=== PATIENT | male | born 1975 | race Asian ===

== ENCOUNTER 2020-07-22 08:58 | Emergency (ER) | payer MEDICAID ==
[~2020-07-22] VITALS: Ht 170.2 cm; Wt 68.2 kg
[~2020-07-22 08:58] MED LIST: ALBU6.7H9 INH
[2020-07-22] MEDS ORDERED: LISI20TA28 PO (09:57)
[2020-07-22 10:28] VITALS: BP 150/112
== END 2020-07-22 10:31 | disposition home or self-care (01) ==
LOC: ER 08:59
DX: I10 Essential (primary) hypertension (principal); J45.909 Unspecified asthma, uncomplicated; Z79.899 Other long term (current) drug therapy
CPT/HCPCS: 99283

== ENCOUNTER 2020-10-05 17:32 | Emergency (ER) | payer MEDICAID ==
[~2020-10-05] VITALS: Ht 167.6 cm; Wt 68.0 kg
[2020-10-06 00:45] LABS: BASOPHILS # (AUTO) 0.1 X10'3 (0-0.2); BASOPHILS % (AUTO) 0.6 % (0-1); EOSINOPHILS % (AUTO) 0.3 % (0-6); HEMATOCRIT 40.1 % (42.0-52.0); HEMOGLOBIN 13.9 g/dl (14.0-17.9); LYMPHOCYTES # (AUTO) 1.1 X10'3 (1.1-4.8); LYMPHOCYTES % (AUTO) 12.5 % (21-51); MEAN CORPUSCULAR HEMOGLOBIN 29.4 PG (27.0-31.0); MEAN CORPUSCULAR HGB CONC 34.6 g/dL (33.0-36.5); MEAN CORPUSCULAR VOLUME 84.8 FL (78-98); MEAN PLATELET VOLUME 6.9 FL (7.4-10.4); MONOCYTES # (AUTO) 0.6 X10'3 (0-0.9); MONOCYTES % (AUTO) 6.8 % (2-12); NEUTROPHILS # (AUTO) 7.3 X10'3 (1.8-7.7); NEUTROPHILS % (AUTO) 79.8 % (42-75); PLATELET COUNT 374 X10'3 (140-440); RED BLOOD COUNT 4.72 X10'6 (4.70-6.10); RED CELL DISTRIBUTION WIDTH 14.6 % (11.5-14.5); WHITE BLOOD COUNT 9.2 X10'3 (4.5-11.0)
[2020-10-06 00:58] LABS: ALANINE AMINOTRANSFERASE 63 U/L (12-78); ALBUMIN 3.6 G/DL (3.4-5.0); ALKALINE PHOSPHATASE 72 IU/L (46-116); ANION GAP 10 (8-16); ASPARTATE AMINO TRANSFERASE 53 U/L (10-37); BILIRUBIN,TOTAL 0.4 MG/DL (0.1-1.0); BLOOD UREA NITROGEN 11 MG/DL (7-18); BUN/CREATININE RATIO 13.1 (5.4-32.0); CALCIUM 8.6 MG/DL (8.5-10.1); CHLORIDE 103 MMOL/L (99-107); CREATININE 0.84 MG/DL (0.60-1.10); GLUCOSE 105 MG/DL (70-104); POTASSIUM 3.8 MMOL/L (3.5-5.1); SODIUM 139 MMOL/L (135-145); TOTAL CARBON DIOXIDE 25.9 MMOL/L (24-32); TOTAL PROTEIN 7.2 G/DL (6.4-8.2); eGFR > 90 ML/MIN
[2020-10-06 01:50] LABS: CLARITY,URINE CLEAR (Clear); COLOR,URINE YELLOW (Yellow); GLUCOSE, URINE NEGATIVE (Neg); KETONES,URINE NEGATIVE (Neg); LEUKOCYTE ESTERASE ,URINE NEGATIVE (Neg); NITRITES, URINE NEGATIVE (Neg); OCCULT BLOOD,URINE NEGATIVE (Neg); PH,URINE 7.5 (4.8-8.0); PROTEIN,URINE NEGATIVE (Neg); UROBILINOGEN,URINE 0.2 E.U/dL (0.2-1.0)
[2020-10-06 01:59] LABS: UA COLLECTION TYPE CLN CATCH MIDSTREAM
[2020-10-06 02:30] VITALS: BP 143/98
== END 2020-10-06 02:32 | disposition home or self-care (01) ==
LOC: ER 17:32
DX: I10 Essential (primary) hypertension (principal); H53.8 Other visual disturbances; R05 Cough; J45.909 Unspecified asthma, uncomplicated; Z79.899 Other long term (current) drug therapy
CPT/HCPCS: 36415; 80053; 81003; 83880; 85025; 93005; 99284

== ENCOUNTER 2021-07-31 11:00 | Emergency (ER) | payer MEDICAID ==
[~2021-07-31] VITALS: Ht 167.6 cm; Wt 68.2 kg
--- NOTE | 2021-07-31 13:05 | NUR ---
RELIEVING RN FOR BREAK, PT IS RESTING QUIETLY ON GURNEY, RESP EVEN AND UNLABORED, SKIN P/W/D, SAID TIGHT FEELING IN THROAT AND ITCHINESS ARE RESOLVING, TALKING FULL SENTENCES,
[2021-07-31 13:10] VITALS: BP 133/105
[2021-07-31] MEDS ORDERED: diphenhydrAMINE 25mg capsule PO ONE (13:30)
[2021-07-31] MEDS ORDERED: triamcinolone acetonide 40mg/ml inj IM ONE (13:30)
[2021-07-31] MEDS ORDERED: EPIN0.3P3 IM (13:32)
== END 2021-07-31 13:59 | disposition home or self-care (01) ==
LOC: ER 11:00
DX: T78.1XXA Other adverse food reactions, not elsewhere classified, initial encounter (principal); R22.0 Localized swelling, mass and lump, head; R06.02 Shortness of breath; X58.XXXA Exposure to other specified factors, initial encounter; Y93.89 Activity, other specified; Y92.89 Other specified places as the place of occurrence of the external cause; Y99.8 Other external cause status
CPT/HCPCS: 96372; 99283; J3301; Q0163

== ENCOUNTER 2021-10-26 13:39 | Emergency (ER) | payer MEDICAID ==
[~2021-10-26] VITALS: Ht 167.6 cm; Wt 65.9 kg
[~2021-10-26 13:39] MED LIST changes: +EPIN0.3P3 IM
[2021-10-26 13:58] VITALS: BP 171/123
== END 2021-10-26 14:40 ==
LOC: ER 13:40
DX: I10 Essential (primary) hypertension; J45.909 Unspecified asthma, uncomplicated; V89.2XXA Person injured in unspecified motor-vehicle accident, traffic, initial encounter; Y93.89 Activity, other specified; Y92.89 Other specified places as the place of occurrence of the external cause; Y99.8 Other external cause status
CPT/HCPCS: 99283

== ENCOUNTER 2023-06-10 20:52 | Emergency (ER) | payer MEDICAID ==
[~2023-06-10] VITALS: Ht 167.6 cm; Wt 78.8 kg
[~2023-06-10 20:52] MED LIST changes: +ALBU6.7H14 INH; -ALBU6.7H9 INH
[2023-06-10] MEDS: cloNIDine 0.1 mg tablet PO ONE (21:39)
[2023-06-10 22:17] LABS: BASOPHILS % (AUTO) 0.5 % (0-1); EOSINOPHILS % (AUTO) 0.5 % (0-6); HEMATOCRIT 44.2 % (42.0-52.0); HEMOGLOBIN 14.6 g/dl (14.0-17.9); MEAN CORPUSCULAR HEMOGLOBIN 28.5 PG (27.0-31.0); MEAN CORPUSCULAR HGB CONC 33.1 g/dL (33.0-36.5); MEAN PLATELET VOLUME 7.2 FL (7.4-10.4); MONOCYTES # (AUTO) 0.9 X10'3 (0-0.9); PLATELET COUNT 358 X10'3 (140-440); RED BLOOD COUNT 5.14 X10'6 (4.70-6.10); RED CELL DISTRIBUTION WIDTH 14.4 % (11.5-14.5)
[2023-06-10] MEDS ORDERED: LISI10TA27 PO (22:20)
[2023-06-10 22:26] LABS: ALANINE AMINOTRANSFERASE 58 U/L (12-78); ALBUMIN/GLOBULIN RATIO 1.2 (1.1-1.5); ALKALINE PHOSPHATASE 81 IU/L (46-116); ANION GAP 10 (8-16); ASPARTATE AMINO TRANSFERASE 45 U/L (10-37); BILIRUBIN,TOTAL 0.6 MG/DL (0.1-1.0); BLOOD UREA NITROGEN 15 MG/DL (7-18); BUN/CREATININE RATIO 15.8 (10.0-20.0); CALCIUM 8.5 MG/DL (8.5-10.1); CHLORIDE 101 MMOL/L (99-107); CREATININE 0.95 MG/DL (0.60-1.10); GLUCOSE 92 MG/DL (70-104); POTASSIUM 3.6 MMOL/L (3.5-5.1); SODIUM 138 MMOL/L (135-145); TOTAL CARBON DIOXIDE 27.2 MMOL/L (24-32); TOTAL PROTEIN 7.4 G/DL (6.4-8.2); eCRCL 88 ML/MIN; eGFR 85 ML/MIN
[2023-06-10 22:33] LABS: PRO BRAIN NATRIURETIC PEPTIDE 201 PG/ML (0-125)
[2023-06-10 22:41] LABS: APTT 40 SECONDS (22-32); PROTHROMBIN TIME 11.2 SECONDS (9.0-12.0)
[2023-06-10 22:47] VITALS: BP 141/95; PULSE 89; RESP 18; TEMP 97.9; O2SAT 97
== END 2023-06-10 22:52 | disposition home or self-care (01) ==
LOC: ER 20:53
DX: I10 Essential (primary) hypertension (principal); J45.909 Unspecified asthma, uncomplicated; R79.1 Abnormal coagulation profile; Z79.899 Other long term (current) drug therapy
CPT/HCPCS: 36415; 71045; 80053; 83735; 83880; 84484; 85025; 85610; 85730; 93005; 99285

== ENCOUNTER 2023-08-23 13:40 | Emergency (ER) | payer MEDICAID ==
[~2023-08-23] VITALS: Ht 167.6 cm; Wt 71.1 kg
[~2023-08-23 13:40] MED LIST changes: +LISI10TA27 PO
[2023-08-23 13:54] VITALS: TEMP 98.1
[2023-08-23 14:33] LABS: BASOPHILS # (AUTO) 0.1 X10'3 (0-0.2); EOSINOPHILS # (AUTO) 0.1 X10'3 (0-0.9); HEMATOCRIT 45.1 % (42.0-52.0); LYMPHOCYTES # (AUTO) 1.1 X10'3 (1.1-4.8); NEUTROPHILS # (AUTO) 6.7 X10'3 (1.8-7.7); PLATELET COUNT 496 X10'3 (140-440)
[2023-08-23 14:35] LABS: BASOPHILS % (AUTO) 0.8 % (0-1); EOSINOPHILS % (AUTO) 0.6 % (0-6); HEMOGLOBIN 14.9 g/dl (14.0-17.9); MEAN CORPUSCULAR HEMOGLOBIN 28.5 PG (27.0-31.0); MEAN CORPUSCULAR HGB CONC 32.9 g/dL (33.0-36.5); MEAN CORPUSCULAR VOLUME 86.6 FL (78-98); NEUTROPHILS % (AUTO) 75.6 % (42-75); RED BLOOD COUNT 5.21 X10'6 (4.70-6.10); RED CELL DISTRIBUTION WIDTH 14.3 % (11.5-14.5); WHITE BLOOD COUNT 8.8 X10'3 (4.5-11.0)
[2023-08-23 14:53] LABS: ALBUMIN 3.9 G/DL (3.4-5.0); ANION GAP 5 (8-16); BLOOD UREA NITROGEN 10 MG/DL (7-18); BUN/CREATININE RATIO 13.2 (10.0-20.0); CALCIUM 9.2 MG/DL (8.5-10.1); CHLORIDE 101 MMOL/L (99-107); CREATININE 0.76 MG/DL (0.60-1.10); GLUCOSE 98 MG/DL (70-104); POTASSIUM 3.7 MMOL/L (3.5-5.1); PRO BRAIN NATRIURETIC PEPTIDE 244 PG/ML (0-125); SODIUM 137 MMOL/L (135-145); TOTAL CARBON DIOXIDE 31.4 MMOL/L (24-32); eCRCL 110 ML/MIN; eGFR > 90 ML/MIN
[2023-08-23] MEDS ORDERED: AZIT-164 PO (15:06)
[2023-08-23] MEDS ORDERED: ONDA4TAB12 PO (15:06)
[2023-08-23] MEDS ORDERED: BUPR1FIL3 SL (15:10)
[2023-08-23] MEDS: azithromycin 250mg tablet PO ONE (15:29)
[2023-08-23] MEDS: buprenorphine/naloxone 8MG-2MG SUBlingual film SL ONE (15:32)
[2023-08-23 15:33] VITALS: BP 152/101; PULSE 85; RESP 16; O2SAT 97
[2023-08-24] MEDS ORDERED: buprenorphine/naloxone 8MG-2MG SUBlingual film SL SCH (08:00)
== END 2023-08-23 15:36 | disposition home or self-care (01) ==
LOC: ER 13:40
DX: S02.831A Fracture of medial orbital wall, right side, initial encounter for closed fracture (principal); S06.0X9A Concussion with loss of consciousness of unspecified duration, initial encounter; I10 Essential (primary) hypertension; J45.909 Unspecified asthma, uncomplicated; F12.90 Cannabis use, unspecified, uncomplicated; F15.90 Other stimulant use, unspecified, uncomplicated; F11.10 Opioid abuse, uncomplicated; Z79.899 Other long term (current) drug therapy; Z79.2 Long term (current) use of antibiotics; Y08.89XA Assault by other specified means, initial encounter; Y93.89 Activity, other specified; Y92.89 Other specified places as the place of occurrence of the external cause; Y99.8 Other external cause status
CPT/HCPCS: 36415; 70450; 70486; 71045; 80048; 83880; 84484; 85025; 93005; 99285

== ENCOUNTER 2023-08-28 12:06 | Emergency (ER) | payer MEDICAID ==
[~2023-08-28] VITALS: Ht 167.6 cm; Wt 71.8 kg
[~2023-08-28 12:06] MED LIST changes: +AZIT-164 PO; +BUPR1FIL3 SL; +ONDA4TAB12 PO
[2023-08-28] MEDS: cloNIDine 0.1 MG/24 HOUR patch (7 day patch) TD ONE (13:22)
[2023-08-28 13:26] VITALS: BP 158/88; PULSE 68; RESP 18; TEMP 97.8; O2SAT 98
== END 2023-08-28 13:28 | disposition home or self-care (01) ==
LOC: ER 12:07
DX: I10 Essential (primary) hypertension (principal); F11.23 Opioid dependence with withdrawal; F15.90 Other stimulant use, unspecified, uncomplicated; J45.909 Unspecified asthma, uncomplicated; F12.90 Cannabis use, unspecified, uncomplicated
CPT/HCPCS: 99282

== ENCOUNTER 2024-10-29 13:02 | Emergency (ER) | payer MEDICAID ==
[~2024-10-29] VITALS: Ht 167.6 cm; Wt 73.5 kg
[~2024-10-29 13:02] MED LIST changes: -AZIT-164 PO; -BUPR1FIL3 SL; +ONDA-243 PO; -ONDA4TAB12 PO
[2024-10-29 13:16] VITALS: TEMP 98.5
--- NOTE | 2024-10-29 13:31 | ELECTROCARDIOGRAPH REPORT ---
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 Antonio Quinonez Measurements Intervals [place] Rate: 87 P: 73 ID: [id number] QRS: 77 QRSD: 77 T: 4 QT: 357 QTc: 430 Interpretive Statements Sinus rhythm Consider left atrial enlargement ST elev, probable normal early repol pattern Electronically Signed On 10-30-2024 19:28:[address] Antonio Quinonez Please click the below link to view image of tracing.
[2024-10-29 13:38] LABS: MEAN PLATELET VOLUME 6.7 FL (7.4-10.4); RED CELL DISTRIBUTION WIDTH 14.3 % (11.5-14.5)
[2024-10-29 13:59] LABS: CREATININE 1.10 MG/DL (0.60-1.10); PRO BRAIN NATRIURETIC PEPTIDE 112 PG/ML (0-125); TOTAL CARBON DIOXIDE 29.5 MMOL/L (24-32); eCRCL 74 ML/MIN; eGFR 71 ML/MIN
--- NOTE | 2024-10-29 13:59 | RADIOLOGY REPORT ---
EXAM: DI CHEST,SINGLE VIEW Indication: CP Technique: Single frontal view of the chest was obtained Comparison: DI CHEST,SINGLE VIEW on DOS: 08/23/23, DI CHEST,SINGLE VIEW on DOS: 06/10/23 FINDINGS: Lines and Tubes: None Lungs: No focal consolidation. Pleura: No effusion. No pneumothorax. Cardiomediastinal contours: Unremarkable Bones: No acute osseous abnormality. IMPRESSION: No acute cardiopulmonary disease.
--- NOTE | 2024-10-29 14:30 | Physician Documentation ---
History of Present Illness ~ Chief Complaint: Heat Related Stated Complaint: HIGH BLOOD PRESSURE DIZZINESS Time Seen by MD: 13:51 Primary Medical Doctor: NONE HPI 49-year-old male presents to the ED with a complaint of not feeling himself today. States he used meth yesterday and was in the sun. Says he was cleaning his car this morning and just did not feel like himself. Denies going to sleep throughout the evening. Denies any chest pain nausea vomiting or diarrhea Day of Exposure: Oct 29, 2024 Medication Reconciliation Allergies: Coded Allergies: No Known Allergies (Unverified , 10/29/24) Scheduled Albuterol Sulfate (Proventil Hfa), 2 PUFFS INH Q6H Epinephrine (Epipen 2-Aubrey), 1 SYR IM ONCE Lisinopril (Lisinopril), 1 TAB PO DAILY Scheduled PRN ONDANSETRON ODT 4mg tablet (Ondansetron Odt), 1 TAB PO TID PRN for nausea/vomiting Past Medical History Past Medical History: Hypertension, Asthma Past Surgical History: noncontributory Alcohol Use: None Drug Use: marijuana, methamphetamine Lives In: Home Occupation: employed Review of Systems All Other Systems at this time: Reviewed and Negative ROS As stated above in the HPI, otherwise all systems are reviewed and negative. Physical Exam Vital Signs: Temperature: 98.5, Source: Temporal, Heart Rate: 88, Respiratory Rate: 18, BP: 163/116, Pulse Oximetry: 98, Weight: 73.500 Oxygen Flow Rate: 0 Physical Exam General: Alert, no apparent distress. Respiratory: Lungs clear, no respiratory distress. Cardiovascular: Regular rate and rhythm, no murmurs. Neurologic: Oriented x4. Psychiatric: Normal mood and affect. Skin: Normal color, warm and dry. No edema, no ecchymosis. Progress Results/Orders Results/Orders Completed Orders - SALVATORE CANALES NP Normal Saline 1000ml (0.9% Sodium Chlori (10/29/24 14:25) Potassium Cl Sr Tablet (K-Dur Tablet) (10/29/24 14:22) Vital Signs 10/29/24 10/29/24 10/29/24 10/29/24 13:16 13:54 13:57 15:20 Temp 98.5 Pulse 93 88 78 Resp 18 20 18 16 B/P (MAP) 189/122 163/116 (132) 173/117 Pulse Ox 94 98 99 O2 Flow Rate 0 0 Laboratory Tests Test 10/29/24 13:32 10/29/24 15:03 White Blood Count 7.7 Red Blood Count 5.37 Hemoglobin 15.8 Hematocrit 46.6 Mean Corpuscular Volume 86.8 Mean Corpuscular Hemoglobin 29.5 Mean Corpuscular Hemoglobin Concent 34.0 Red Cell Distribution Width 14.3 Platelet Count 497 H Mean Platelet Volume 6.7 L Neutrophils (%) (Auto) 67.4 Lymphocytes (%) (Auto) 19.5 L Monocytes (%) (Auto) 11.4 Eosinophils (%) (Auto) 0.9 Basophils (%) (Auto) 0.8 Neutrophils # (Auto) 5.2 Lymphocytes # (Auto) 1.5 Monocytes # (Auto) 0.9 Eosinophils # (Auto) 0.1 Basophils # (Auto) 0.1 CBC Comment Sodium Level 136 Potassium Level 3.3 L Chloride Level 101 Carbon Dioxide Level 29.5 Anion Gap 6 L Blood Urea Nitrogen 16 Creatinine 1.10 Estimated GFR/1.73 m2 71 BUN/Creatinine Ratio 14.5 Glucose Level 95 Calcium Level 8.8 Troponin I High Sensitivity 14 14 Pro-B-Type Natriuretic Peptide 112 Albumin 4.3 Chemistry Comments Troponin I High Sens Percent Delta 0 Troponin I Hi Sens Absolute Change 0 Medical Decision Making Findings This patient presents as though he is metabolizing methamphetamine beginning to feel the effects of being up all night. He does not present with any acute indicators other than mild hypokalemia which is secondary probably to heat related exposure yesterday and methamphetamine use Differential Dx:Considerations: Include: Cerebral edema, Dehydration, Electrolyte imbalance, Encephalopathy, Heat cramps, Heat exhaustion, Heat stoke, Heat syncope, Heat tetany, Hypotension, Prickly heat, Renal failure, Sepsis, Other Departure Disposition: 01 HOME / SELF CARE / HOMELESS Impression: Primary Impression: Heat exhaustion Condition: Improved Discharge Instructions: Heat Illness Referrals: NO PRIMARY CARE PROVIDER (PCP) Education Educated: Patient Signature Scribe Signature: vf Attestation: Scribed for Salvatore Canales Financial Reporting Director by Salvatore Herrmann NP . 10/29/24 14:32 SALVATORE CANALES NP Oct 29, 2024 14:30
[2024-10-29] MEDS: potassium Cl 20 mEq SR tablet PO STA (14:35)
[2024-10-29] MEDS: normal saline 1000ML IV soln IVB ONE (14:36)
[2024-10-29 15:20] VITALS: BP 173/117; PULSE 78; RESP 16; O2SAT 99
== END 2024-10-29 15:30 | disposition home or self-care (01) ==
LOC: ER 13:03
DX: T67.5XXA Heat exhaustion, unspecified, initial encounter (principal); F12.90 Cannabis use, unspecified, uncomplicated; F15.90 Other stimulant use, unspecified, uncomplicated; I10 Essential (primary) hypertension; J45.909 Unspecified asthma, uncomplicated; Z79.899 Other long term (current) drug therapy; X58.XXXA Exposure to other specified factors, initial encounter; Y93.9 Activity, unspecified; Y92.89 Other specified places as the place of occurrence of the external cause; Y99.8 Other external cause status
CPT/HCPCS: 36415; 71045; 80048; 83880; 84484; 85025; 93005; 96360; 99285; J7030